=== PATIENT | female | born 1975 | race Caucasian/White ===

== ENCOUNTER 2017-12-04 08:12 | Emergency (ER) | payer MEDICAID, OTHER ==
[2017-12-04 08:17] VITALS: BP 105/70; PULSE 70; RESP 19; TEMP 98.7; O2SAT 96
--- NOTE | 2017-12-04 08:34 | ED PDOC ---
HPI: Asthma Time Seen by Provider: 12/04/17 08:16 Chief Complaint (Nursing): Cough, Cold, Congestion Chief Complaint (Provider): Asthma History Per: Patient History/Exam Limitations: no limitations Onset/Duration Of Symptoms: Days (today) Current Symptoms Are (Timing): Still Present Associated Symptoms: denies: Cough Additional Complaint(s): 42 year old female presents to the ED complaining of wheezing and itchy throat. She reports she ran out of medications prompting ED visit. Feels like her asthma. Worse when she walks a lot, like today without her meds. No chest pain. Patient denies nausea, vomiting, diarrhea, coughing, abdominal pain, congestion, leg pain, and long distance traveling. No hormone use. PMD: none Past Medical History Reviewed: Historical Data, Nursing Documentation, Vital Signs Vital Signs: Last Vital Signs Temp 98.7 F 12/04/17 08:16 Pulse 70 12/04/17 08:16 Resp 19 12/04/17 08:16 BP 105/70 12/04/17 08:16 Pulse Ox 96 12/04/17 08:16 - Medical History PMH: Asthma - Surgical History Surgical History: No Surg Hx - Family History Family History: States: Unknown Family Hx - Living Arrangements Living Arrangements: With Family - Home Medications Home Medications: Ambulatory Orders Medication Instructions Recorded Albuterol Sulfate [Proair Hfa] 0.09 mg IH Q6H PRN #2 inh 12/04/17 predniSONE [predniSONE Tab] 20 mg PO BID 5 Days tab 12/04/17 - Allergies Allergies/Adverse Reactions: Allergies Allergy/AdvReac Type Severity Reaction Status Date / Time cat dander Allergy WHEEZING Verified 12/04/17 08:31 Review of Systems Constitutional: Negative for: Fever, Chills, Weakness ENT: Positive for: Other (Itchy throat). Negative for: Nose Congestion, Throat Pain Cardiovascular: Negative for: Chest Pain Respiratory: Positive for: Wheezing. Negative for: Cough, SOB with Exertion Gastrointestinal: Negative for: Nausea, Vomiting, Abdominal Pain, Diarrhea Musculoskeletal: Negative for: Leg Pain Neurological: Negative for: Weakness Physical Exam - Reviewed Nursing Documentation Reviewed: Yes Vital Signs Reviewed: Yes - Physical Exam Appears: Positive for: Non-toxic, No Acute Distress Head Exam: Positive for: ATRAUMATIC, NORMOCEPHALIC Skin: Positive for: Normal Color, Warm, Dry Eye Exam: Positive for: Normal appearance ENT: Positive for: Nasal Congestion Neck: Positive for: Normal, Painless ROM, Supple Cardiovascular/Chest: Positive for: Regular Rate, Rhythm. Negative for: Murmur Respiratory: Positive for: Decreased Breath Sounds, Wheezing (Mild expiratory wheezing). Negative for: Accessory Muscle Use Back: Positive for: Normal Inspection. Negative for: L CVA Tenderness, R CVA Tenderness Extremity: Positive for: Normal ROM. Negative for: Tenderness, Pedal Edema Neurologic/Psych: Positive for: Alert, Oriented. Negative for: Motor/Sensory Deficits - ECG O2 Sat by Pulse Oximetry: 96 (RA) Pulse Ox Interpretation: Normal - Progress ED Course And Treament: 910: Stable. AAOx3. Tolerated PO. No respiratory distress. Comfortable. Wants rx for her albuterol. States she gets prednisone sometimes also. Medical Decision Making Medical Decision Making: Initial Impression: Wheezing Initial Plan: --ED urine --Albuterol 3mL INH --Prednisone 60mg PO Scribe Attestation: Documented by Tha Ramirez acting as a scribe for Timothy Cho MD. Provider Scribe Attestation: All medical record entries made by the Scribe were at my direction and personally dictated by me. I have reviewed the chart and agree that the record accurately reflects my personal performance of the history, physical exam, medical decision making, and the department course for this patient. I have also personally directed, reviewed, and agree with the discharge instructions and disposition. Disposition - Clinical Impression Clinical Impression: Asthma - Patient ED Disposition Is Patient to be Admitted: No Counseled Patient/Family Regarding: Studies Performed, Diagnosis, Need For Followup, Rx Given - Disposition Referrals: [facility] [Outside] - 12/05/17 Disposition: Routine/Home Disposition Time: 08:50 Condition: STABLE Additional Instructions: Return if not better in 3 days. Prescriptions: Albuterol Sulfate [Proair Hfa] 0.09 mg IH Q6H PRN #2 inh PRN Reason: Wheezing predniSONE [predniSONE Tab] 20 mg PO BID 5 Days tab Instructions: Asthma in Adults
[2017-12-04] MEDS ORDERED: Albuterol-Ipratrop 3 mg / 0.5 (3 ml) UD INH STA (08:38)
[2017-12-04] MEDS ORDERED: Albuterol-Ipratrop 3 mg / 0.5 (3 ml) UD ONE (08:53)
== END 2017-12-04 09:22 | disposition home or self-care (01) ==
LOC: H.ER 08:12
DX: J45.909 Unspecified asthma, uncomplicated (principal)

== ENCOUNTER 2017-12-28 15:48 | Emergency (ER) | payer MEDICAID, OTHER ==
[2017-12-28 15:52] VITALS: RESP 16
[2017-12-28] MEDS ORDERED: Albuterol-Ipratrop 3 mg / 0.5 (3 ml) UD INH STA (16:01)
[2017-12-28] MEDS ORDERED: Albuterol-Ipratrop 3 mg / 0.5 (3 ml) UD ONE ×2 (16:04→17:07)
--- NOTE | 2017-12-28 16:05 | ED PDOC ---
HPI: CCC, URI, Sore Throat Chief Complaint (Provider): Cough, Wheezing History Per: Patient History/Exam Limitations: no limitations Onset/Duration Of Symptoms: Days Current Symptoms Are (Timing): Still Present Location Of Pain: None Sick Contacts (Context): None Additional Complaint(s): 42 y/o female presents to the ED complaining of cough and wheezing, progressively worsening over the past several weeks. States she does have a past medical history of asthma. Due to insurance problems, patient has been unable to get her albuterol inhaler. Denies any fever, chills, chest pain, hemoptysis, sick contacts, or recent travel. PMD: Unknown <Man Silveira - Last Filed: 12/28/17 18:07> <Ruchi Gomes - Last Filed: 12/29/17 15:59> Time Seen by Provider: 12/28/17 15:55 Chief Complaint (Nursing): Cough, Cold, Congestion Supervising Attending Note - Attestation: I have personally seen and examined this patient.: No I have reviewed all pertinent clinical information, including history, physical exam and plan: Yes <Ruchi Gomes F - Last Filed: 12/29/17 15:59> Past Medical History Reviewed: Historical Data, Nursing Documentation, Vital Signs Vital Signs: Last Vital Signs Temp 97.9 F 12/28/17 15:49 Pulse 92 H 12/28/17 15:49 Resp 16 12/28/17 15:49 BP 117/73 12/28/17 15:49 Pulse Ox 100 12/28/17 15:49 - Medical History PMH: Asthma - Family History Family History: States: Unknown Family Hx - Social History Current smoker - smoking cessation education provided: Yes <Man Silveira - Last Filed: 12/28/17 18:07> Vital Signs: Last Vital Signs Temp 98.9 F 12/28/17 18:15 Pulse 87 12/28/17 18:15 Resp 16 12/28/17 15:49 BP 98/63 L 12/28/17 18:15 Pulse Ox 95 12/28/17 18:15 <Ruchi Gomes - Last Filed: 12/29/17 15:59> - Home Medications Home Medications: Ambulatory Orders Medication Instructions Recorded Albuterol Sulfate [Proair Hfa] 0.09 mg IH Q6H PRN #2 inh 12/04/17 RX: predniSONE [predniSONE Tab] 20 mg PO BID 5 Days tab 12/04/17 Albuterol HFA [Ventolin HFA 90 2 puff IH [id number] PRN #60 puff 12/28/17 mcg/actuation (8 g)] predniSONE [Prednisone] 40 mg PO DAILY #8 tab 12/28/17 - Allergies Allergies/Adverse Reactions: Allergies Allergy/AdvReac Type Severity Reaction Status Date / Time cat dander Allergy WHEEZING Verified 12/04/17 08:31 Review of Systems ROS Statement: Except As Marked, All Systems Reviewed And Found Negative Constitutional: Negative for: Fever, Chills Cardiovascular: Negative for: Chest Pain, Palpitations Respiratory: Positive for: Cough, Wheezing. Negative for: Hemoptysis <Man Silveira - Last Filed: 12/28/17 18:07> Physical Exam - Reviewed Nursing Documentation Reviewed: Yes Vital Signs Reviewed: Yes - Physical Exam Appears: Positive for: Well, Non-toxic, No Acute Distress Head Exam: Positive for: ATRAUMATIC, NORMOCEPHALIC Skin: Positive for: Normal Color, Warm, Dry Eye Exam: Positive for: Normal appearance ENT: Positive for: Normal ENT Inspection, Pharynx Is (clear) Neck: Positive for: Normal, Painless ROM, Supple Cardiovascular/Chest: Positive for: Regular Rate, Rhythm. Negative for: Tachycardia Respiratory: Positive for: Wheezing (expiratory wheezing bilaterally). Negative for: Accessory Muscle Use, Respiratory Distress Pulses-Radial (L): 2+ Pulses-Radial (R): 2+ Extremity: Positive for: Normal ROM. Negative for: Pedal Edema, Calf Tenderness Neurologic/Psych: Positive for: Alert, Oriented (x3), Other (Speaking in full sentences). Negative for: Motor/Sensory Deficits <Man Silveira E - Last Filed: 12/28/17 18:07> - ECG O2 Sat by Pulse Oximetry: 100 (RA) Pulse Ox Interpretation: Normal <Man Silveira - Last Filed: 12/28/17 18:07> Medical Decision Making Medical Decision Making: Impression: Asthma exacerbation Initial Plan: --Urine preg --Chest x-ray --Prednisone 40 mg PO --Duoneb 3ml x3 --Peak Flow pre/post nebulizers --Reassessment after treatment Repeat Peak Flow: 220 On reeval, patient states she is feeling better, wheezing still present. Lungs with improved wheezing on auscultation. Additional albuterol nebulizer ordered. Scribe Attestation: Documented by Justine Ramos, acting as a scribe for Man Silveira PA-C. Provider Scribe Attestation: All medical record entries made by the Scribe were at my direction and personally dictated by me. I have reviewed the chart and agree that the record accurately reflects my personal performance of the history, physical exam, medical decision making, and the department course for this patient. I have also personally directed, reviewed, and agree with the discharge instructions and disposition. <Man Silveira - Last Filed: 12/28/17 18:07> Disposition - Patient ED Disposition Is Patient to be Admitted: No - Disposition Disposition: Routine/Home Disposition Time: 18:07 <Man Silveira - Last Filed: 12/28/17 18:07> <Ruchi Gomes - Last Filed: 12/29/17 15:59> - Clinical Impression Clinical Impression: Bronchospasm, acute - Disposition Referrals: [facility] [Outside] Condition: IMPROVED Additional Instructions: SANDY CHAVES, thank you for letting us take care of you today. Your provider was Ruchi Gomes MD and you were treated for DIFFICULTY BREATHING. The emergency medical care you received today was directed at your acute symptoms. If you were prescribed any medication, please fill it and take as directed. It may take several days for your symptoms to resolve. Return to the Emergency Department if your symptoms worsen, do not improve, or if you have any other problems. Please contact your doctor or call one of the physicians/clinics you have been referred to that are listed on the Patient Visit Information form that is included in your discharge packet. Bring any paperwork you were given at discharge with you along with any medications you are taking to your follow up visit. Our treatment cannot replace ongoing medical care by a primary care provider outside of the emergency department. Thank you for allowing the [facility] team to be part of your care today. If you had an X-Ray or CT scan: A Radiologist will review the ED reading if any change in treatment is needed we will contact you. If you had a blood, urine, or wound culture: It will take several days for the results, if any change in treatment is needed we will contact you. If you had an STI test: It will take 48 hours for the results. Please call after 1 week if you have not heard back. Prescriptions: Albuterol HFA [Ventolin HFA 90 mcg/actuation (8 g)] 2 puff IH [id number] PRN #60 puff PRN Reason: Cough predniSONE [Prednisone] 40 mg PO DAILY #8 tab Instructions: Asthma, Adult (DC) Forms: [employer] ([place]) - PA / SHANK SCOURER / Resident Statement MD/DO has reviewed & agrees with the documentation as recorded. <Man Silveira E - Last Filed: 12/28/17 18:07>
--- NOTE | 2017-12-28 16:49 | RAD ---
Date of service: 12/28/2017 HISTORY: cough COMPARISON: No prior. TECHNIQUE: Chest PA and lateral FINDINGS: LUNGS: No active pulmonary disease. PLEURA: No significant pleural effusion identified. No pneumothorax apparent. CARDIOVASCULAR: Normal. OSSEOUS STRUCTURES: Partially imaged thoracolumbar spinal fusion rods. VISUALIZED UPPER ABDOMEN: Normal. OTHER FINDINGS: None. IMPRESSION: No active disease.
[2017-12-28] MEDS ORDERED: Albuterol 0.083% Inhal Sol (2.5 mg/3 mL) UD INH STA (17:02)
[2017-12-28] MEDS ORDERED: Albuterol 0.083% Inhal Sol (2.5 mg/3 mL) UD ONE (17:14)
[2017-12-28 21:54] VITALS: BP 98/63; PULSE 87; TEMP 98.9; O2SAT 95
== END 2017-12-28 18:20 | disposition home or self-care (01) ==
LOC: H.ER 15:48
DX: J45.901 Unspecified asthma with (acute) exacerbation (principal); F17.200 Nicotine dependence, unspecified, uncomplicated

== ENCOUNTER 2018-01-03 09:57 | Inpatient (IN) | payer MEDICAID, OTHER ==
[2018-01-03 10:04] VITALS: BMI 20.3
[2018-01-03] MEDS ORDERED: Albuterol-Ipratrop 3 mg / 0.5 (3 ml) UD IH STA (10:51)
[2018-01-03] MEDS ORDERED: Albuterol-Ipratrop 3 mg / 0.5 (3 ml) UD INH STA (10:51)
--- NOTE | 2018-01-03 10:51 | ED PDOC ---
HPI: Chest Pain Time Seen by Provider: 01/03/18 10:18 Chief Complaint (Nursing): Chest Pain Chief Complaint (Provider): Pain to the R rib History Per: Patient History/Exam Limitations: no limitations Onset/Duration Of Symptoms: Days (1 week) Additional Complaint(s): Pt. with right upper back and r lateral rib pain on moving and coughing. Pain when moving shoulders or putting clothes on. Denies any injury. Has had cough, wheezes for 1 week and got the pain since yesterday. Here recently and given albuterol and prednisone which she says she finished. No left chest pain. No headaches, dizziness, weakness, fever, abd pain, nausea, vomit, diarrhea. No shoulder or leg pain. No numbness, tingles. Past Medical History Reviewed: Nursing Documentation, Vital Signs Vital Signs: Last Vital Signs Temp 99 F 01/03/18 10:16 Pulse 109 H 01/03/18 10:16 Resp 20 01/03/18 10:16 BP 102/66 01/03/18 10:16 Pulse Ox 98 01/03/18 10:16 - Medical History PMH: Anxiety, Asthma, Depression - Surgical History Surgical History: Back Surgery - Family History Family History: States: Unknown Family Hx - Home Medications Home Medications: Ambulatory Orders Medication Instructions Recorded Albuterol Sulfate [Proair Hfa] 0.09 mg IH Q6H PRN #2 inh 12/04/17 predniSONE [predniSONE Tab] 20 mg PO BID 5 Days tab 12/04/17 Albuterol HFA [Ventolin HFA 90 2 puff IH [id number] PRN #60 puff 12/28/17 mcg/actuation (8 g)] predniSONE [Prednisone] 40 mg PO DAILY #8 tab 12/28/17 - Allergies Allergies/Adverse Reactions: Allergies Allergy/AdvReac Type Severity Reaction Status Date / Time cat dander Allergy WHEEZING Verified 01/03/18 10:20 Review of Systems ROS Statement: Except As Marked, All Systems Reviewed And Found Negative Cardiovascular: Positive for: Chest Pain Respiratory: Positive for: Cough, Shortness of Breath, Wheezing Physical Exam - Reviewed Nursing Documentation Reviewed: Yes Vital Signs Reviewed: Yes - Physical Exam Appears: Positive for: Uncomfortable Head Exam: Positive for: ATRAUMATIC, NORMAL INSPECTION, NORMOCEPHALIC Skin: Positive for: Normal Color, Warm, DRY Eye Exam: Positive for: EOMI, Normal appearance, PERRL ENT: Positive for: Nasal Congestion Neck: Positive for: Normal, Painless ROM, Supple Cardiovascular/Chest: Positive for: Regular Rate, Rhythm. Negative for: Chest Non Tender (R lateral upper rib and R upper back end developer mild.) Respiratory: Positive for: Decreased Breath Sounds, Wheezing (mild b/l) Gastrointestinal/Abdominal: Positive for: Normal Exam, Soft. Negative for: Tenderness Back: Positive for: Normal Inspection. Negative for: L CVA Tenderness, R CVA Tenderness Extremity: Positive for: Normal ROM. Negative for: Tenderness, Pedal Edema Neurologic/Psych: Positive for: Alert, Oriented - Laboratory Results Result Diagrams: 01/03/18 13:00 01/03/18 13:00 Interpretation Of Abn Labs: 17.9 wbc, 3.3 k - ECG ECG: Positive for: Interpreted By Me, Viewed By Me ECG Rhythm: Positive for: Normal QRS, Normal ST Segment, Sinus Rhythm O2 Sat by Pulse Oximetry: 98 Pulse Ox Interpretation: Normal - Radiology X-Ray: Read By Radiologist X-Ray Interpretation: Infiltrates (R lung) - Progress ED Course And Treament: 1427: Stable. AAOx3. Will need admit. Failed outpt. tx. Meet sepsis criteria. 1436: Stable. Spoke with Dr. Alejandro. Will admit tele. - Critical Care Total Time (In Min): 30 Documented Critical Care: Time excludes all time spent performint seperately billable procedures Disposition - Clinical Impression Clinical Impression: Asthma attack, Pneumonia, Sepsis - Patient ED Disposition Is Patient to be Admitted: Yes Counseled Patient/Family Regarding: Studies Performed, Diagnosis - Disposition Disposition Time: 14:38 Condition: FAIR - Pt Status Changed To: Hospital Disposition Of: Inpatient - Admit Certification Admit to Inpatient:: After my assessment, the patient will require hospitalization for at least two midnights. This is because of the severity of symptoms shown, intensity of services needed, and/or the medical risk in this patient being treated as an outpatient. - POA Present On Arrival: None
--- NOTE | 2018-01-03 11:37 | RAD ---
Date of service: 01/03/2018 HISTORY: pain COMPARISON: 12/28/2017 TECHNIQUE: Chest PA and lateral FINDINGS: LUNGS: Interval space opacity right upper lobe possible smaller more patchy opacities right lung base. Infiltrates at these locations especially the right upper lobe noted PLEURA: No significant pleural effusion identified. No pneumothorax apparent. CARDIOVASCULAR: Normal. OSSEOUS STRUCTURES: Thoraco lumbar spinal hardware as before. VISUALIZED UPPER ABDOMEN: Normal. OTHER FINDINGS: None. IMPRESSION: Interval right sided pulmonary infiltrates as above. Comments: Study marked for PA review .
[2018-01-03] MEDS ORDERED: Sodium Chloride 0.9% 1,000 ML IV STA (11:47)
[2018-01-03] MEDS ORDERED: cefTRIAXone (Rocephin) 1 gm Inj IV ONE (11:47)
[2018-01-03] MEDS ORDERED: Azithromycin 500 MG in Sodium Chloride 0.9% 250 ML IVPB STA (12:00)
[2018-01-03 12:16] LABS: ABG ALLEN TEST YES; ARTERIAL BLOOD GAS HCO3 27.2 mmol/L (21-28); ARTERIAL BLOOD GAS O2 SAT 99.5 % (95-98); ARTERIAL BLOOD GAS PCO2 30 mm/Hg (35-45); ARTERIAL BLOOD GAS PH 7.53 (7.35-7.45); ARTERIAL BLOOD GAS PO2 80 mm/Hg (80-100)
[2018-01-03] MEDS ORDERED: Albuterol-Ipratrop 3 mg / 0.5 (3 ml) UD ONE (13:19)
[2018-01-03] MEDS ORDERED: cefTRIAXone (Rocephin) 1 gm Inj ONE (13:19)
[2018-01-03] MEDS ORDERED: Azithromycin 500 MG IV IVPB ONE (13:20)
[2018-01-03 13:29] LABS: BASO % 0.2 % (0.0-2.0); EOS % 0.2 % (0.0-4.0); HEMOGLOBIN 11.5 g/dL (12.0-16.0); LYMPH # 2.1 K/uL (1.0-4.3); MEAN CELL VOLUME 93.4 fl (81.0-99.0); MEAN CORPUSCULAR HEMOGLOBIN 31.9 pg (27.0-31.0); MEAN CORPUSCULAR HGB CONC 34.2 g/dL (33.0-37.0); MEAN PLATELET VOLUME 7.2 fl (7.2-11.7); MONO # 1.2 K/uL (0.0-0.8); MONO % 6.9 % (0.0-10.0); NEUT # 14.4 K/uL (1.8-7.0); NEUT % 80.7 % (50.0-75.0); RBC 3.61 Mil/uL (3.80-5.20); RED CELL DISTRIBUTION WIDTH 12.7 % (11.5-14.5); WHITE BLOOD COUNT 17.9 K/uL (4.8-10.8)
[2018-01-03 13:40] LABS: ALB/GLOB RATIO 1.1 (1.0-2.1); ALBUMIN 3.8 g/dL (3.5-5.0); ALT/SGPT 32 U/L (9-52); AST/SGOT 18 U/L (14-36); BLOOD UREA NITROGEN 9 mg/dl (7-17); GFR NON-AFRICAN AMERICAN > 60
[2018-01-03 13:50] LABS: B-TYPE NATRIURETIC PEPTIDE 87.8 pg/ml (0-450)
[2018-01-03] MEDS ORDERED: Potassium Chloride 20 mEq ER Tab PO ONE ×3 (14:27→18:33)
[2018-01-03] MEDS ORDERED: Morphine 4 MG/ML VIAL ONE (15:35)
--- NOTE | 2018-01-03 16:30 | CARD ---
APPROVED REPORT Date of service: 01/03/2018 EKG Measurement Heart [id number] <Conclusion> Normal sinus rhythm Normal ECG
[2018-01-03] MEDS ORDERED: Albuterol-Ipratrop 3 mg / 0.5 (3 ml) UD INH PRN (17:23)
--- NOTE | 2018-01-03 17:32 | CP.PCM.HP ---
History of Present Illness - History of Present Illness History of Present Illness: 42 yo female with pmhx of asthma presents to [facility] ED with complaints of right sided pleuritic chest pain and chills for 2 days associated with productive cough and intermittent wheezing x 2 weeks. Patient reports her right upper back and right lateral ribs hurts with deep breathing. Patient was seen by her PMD few days ago and was given albuterol and prednisone for 4 days. She completed prednisone yesterday with no significant improvement of symptoms. Has hx pneumonia 9 years ago. Patient smokes 4-5 cigarettes daily for 40 yrs. Denies any hx intubation due to asthma. Denies any fever, left sided chest pain, headache, dizziness, GI or complaints. ROS: all 12 systems reviewed and negative except as mentioned in HPI PMHX: Asthma, anxiety and depression PSHX: back surgery Social hx: smokes on/off for 40 yrs, currently smokes 3-4 cigarettes daily. Denies drinking alcohol or using drugs. Family hx: mother has asthma Allergies: Cat dander Medications: albuterol HFA, nebulizer at home. Present on Admission - Present on Admission Any Indicators Present on Admission: No Review of Systems - Review of Systems All systems: reviewed and no additional remarkable complaints except Past Patient History - Infectious Disease Hx of Infectious Diseases: None - Past Social History Smoking Status: Unknown If Ever Smoked - PULMONARY Hx Asthma: Yes - HEENT Hx Deafness: Yes - PSYCHIATRIC Hx Anxiety: Yes Hx Depression: Yes - ANESTHESIA Hx Anesthesia: Yes Meds Allergies/Adverse Reactions: Allergies Allergy/AdvReac Type Severity Reaction Status Date / Time cat dander Allergy WHEEZING Verified 01/03/18 10:20 Physical Exam - Constitutional Appears: Non-toxic, No Acute Distress - Head Exam Head Exam: ATRAUMATIC, NORMOCEPHALIC - Eye Exam Eye Exam: EOMI, Normal appearance, PERRL - ENT Exam ENT Exam: Mucous Membranes Moist - Neck Exam Neck exam: Positive for: Full Rom, Normal Inspection. Negative for: Meningismus - Respiratory Exam Respiratory Exam: Decreased Breath Sounds, Rales (in right lung), NORMAL BREATHING PATTERN. absent: Accessory Muscle Use, Wheezes, Respiratory Distress - Cardiovascular Exam Cardiovascular Exam: REGULAR RHYTHM, +S1, +S2 - GI/Abdominal Exam GI & Abdominal Exam: Normal Bowel Sounds, Soft. absent: Tenderness - Extremities Exam Extremities exam: Positive for: normal inspection. Negative for: calf tenderness, pedal edema - Neurological Exam Neurological exam: Alert, CN II-XII Intact, Oriented x3 - Psychiatric Exam Psychiatric exam: Normal Affect, Normal Mood - Skin Skin Exam: Normal Color, Warm Results - Vital Signs Recent Vital Signs: Last Vital Signs Temp 99 F 01/03/18 10:16 Pulse 109 H 01/03/18 10:16 Resp 20 01/03/18 10:16 BP 102/66 01/03/18 10:16 Pulse Ox 98 01/03/18 14:39 - Labs Result Diagrams: 01/03/18 13:00 01/03/18 13:00 Labs: Laboratory Results - last 24 hr 01/03/18 01/03/18 01/03/18 11:47 13:00 13:00 WBC 17.9 H RBC 3.61 L Hgb 11.5 L Hct 33.7 L MCV 93.4 MCH 31.9 H MCHC 34.2 RDW 12.7 Plt Count 280 MPV 7.2 Neut % (Auto) 80.7 H Lymph % (Auto) 12.0 L [place] % (Auto) 6.9 Eos % (Auto) 0.2 Baso % (Auto) 0.2 Neut # (Auto) 14.4 H Lymph # (Auto) 2.1 [place] # (Auto) 1.2 H Eos # (Auto) 0.0 Baso # (Auto) 0.0 pCO2 30 L pO2 80 HCO3 27.2 ABG pH 7.53 H ABG Total CO2 26.0 ABG O2 Saturation 99.5 H ABG Base Excess 3.0 Walter Test Yes ABG Potassium 3.2 L A-a O2 Difference 32.0 Sodium 135.0 139 Chloride 104.0 104 Glucose 113 H Lactate 1.2 FiO2 21.0 Potassium 3.3 L Carbon Dioxide 24 Anion Gap 14 BUN 9 Creatinine 0.5 L Est GFR ( Amer) > 60 Est GFR (Non-Af Amer) > 60 Random Glucose 105 Calcium 9.0 Total Bilirubin 0.4 AST 18 ALT 32 Alkaline Phosphatase 62 Troponin I < 0.0120 NT-Pro-B Natriuret Pep 87.8 Total Protein 7.2 Albumin 3.8 Globulin 3.4 Albumin/Globulin Ratio 1.1 Arterial Blood Potassium 3.2 L Influenza Typ A,B (EIA) 01/03/18 13:00 WBC RBC Hgb Hct MCV MCH MCHC RDW Plt Count MPV Neut % (Auto) Lymph % (Auto) [place] % (Auto) Eos % (Auto) Baso % (Auto) Neut # (Auto) Lymph # (Auto) [place] # (Auto) Eos # (Auto) Baso # (Auto) pCO2 pO2 HCO3 ABG pH ABG Total CO2 ABG O2 Saturation ABG Base Excess Walter Test ABG Potassium A-a O2 Difference Sodium Chloride Glucose Lactate FiO2 Potassium Carbon Dioxide Anion Gap BUN Creatinine Est GFR ( Amer) Est GFR (Non-Af Amer) Random Glucose Calcium Total Bilirubin AST ALT Alkaline Phosphatase Troponin I NT-Pro-B Natriuret Pep Total Protein Albumin Globulin Albumin/Globulin Ratio Arterial Blood Potassium Influenza Typ A,B (EIA) Negative for flu a/b Assessment & Plan - Assessment and Plan (Free Text) Assessment: Assessment: 42 yo female with pmhx of asthma presents to [facility] ED with complaints of right sided pleuritic chest pain and chills for 2 days associated with productive cough and intermittent wheezing x 2 weeks. Patient is admitted for pneumonia and asthma exacerbation. Plan: Admit to telemetry IV abx (Cefriaxone and azithromycin) IV solumedrol Duoneb Pain management AM Labs Patient seen and examined with Dr. Flavia Sotomayor, pgy-2
[2018-01-03] MEDS ORDERED: Pantoprazole 40 mg EC Tab PO ONE (18:20)
[2018-01-03] MEDS: Pantoprazole 40 mg EC Tab PO SCH (18:22)
[2018-01-03] MEDS ORDERED: methylPREDNISolone 40 MG in Sodium Chloride 0.9% 50 ML IVPB SCH (21:00)
[2018-01-03] MEDS: guaiFENesin-Codeine 100-10mg/5ml Syrup (5 ml) UD PO PRN (21:49)
[2018-01-03] MEDS: MethylPREDNISolone 40 mg Vial IVP SCH (22:01)
[2018-01-03] MEDS: Sodium Chloride 0.9% 1,000 ML IV SCH (22:18)
[2018-01-04] MEDS: Sodium Chloride 0.9% 1,000 ML IV SCH ×4 (04:42→22:01)
[2018-01-04] MEDS: guaiFENesin-Codeine 100-10mg/5ml Syrup (5 ml) UD PO PRN (04:49)
[2018-01-04] MEDS ORDERED: Pneumococcal 23-Valent Vaccine IM ONE (04:51)
[2018-01-04 06:24] LABS: HEMOGLOBIN 10.4 g/dL (12.0-16.0); MEAN CELL VOLUME 94.2 fl (81.0-99.0); MEAN CORPUSCULAR HEMOGLOBIN 31.8 pg (27.0-31.0); MEAN CORPUSCULAR HGB CONC 33.7 g/dL (33.0-37.0); RBC 3.26 Mil/uL (3.80-5.20); RED CELL DISTRIBUTION WIDTH 12.5 % (11.5-14.5); WHITE BLOOD COUNT 15.4 K/uL (4.8-10.8)
[2018-01-04 06:59] LABS: BLOOD UREA NITROGEN 11 mg/dl (7-17); CALCIUM 8.6 mg/dL (8.4-10.2); GFR NON-AFRICAN AMERICAN > 60
[2018-01-04] MEDS ORDERED: Influenza Vaccine 60 MCG/0.5 ML SYR (3 yr & up) IM ONE (07:55)
[2018-01-04] MEDS: Azithromycin 500 MG in Sodium Chloride 0.9% 250 ML IVPB SCH (08:35)
[2018-01-04] MEDS: MethylPREDNISolone 40 mg Vial IVP SCH ×2 (08:36→21:58)
[2018-01-04] MEDS: guaiFENesin-DM 600-30 mg ER Tab PO SCH ×2 (10:05→16:04)
[2018-01-04] MEDS: Pantoprazole 40 mg EC Tab PO SCH (10:06)
[2018-01-04] MEDS: Enoxaparin 30 mg Syringe SC SCH (10:06)
[2018-01-04] MEDS: Albuterol-Ipratrop 3 mg / 0.5 (3 ml) UD INH SCH ×3 (10:13→19:23)
--- NOTE | 2018-01-04 11:55 | CP.PCM.PN ---
Subjective - Date & Time of Evaluation Date of Evaluation: 01/04/18 Time of Evaluation: 11:55 - Subjective Subjective: Patient seen and examined today. Report right sided pleuritic pain and cough are improving. No acute overnight event. Afebrile but still hypotensive. Reports left breast pain for few days. Denies any discharge or trauma. Objective - Vital Signs/Intake and Output Vital Signs (last 24 hours): Temp Pulse Resp BP Pulse Ox 97.8 F 78 20 92/60 L 98 01/04/18 08:47 01/04/18 11:14 01/04/18 08:47 01/04/18 08:47 01/04/18 08:47 - Medications Medications: Current Medications Albuterol/Ipratropium (Duoneb 3 Mg/0.5 Mg (3 Ml) Ud) 3 ml INH RQ6 AJAY Last Admin: 01/04/18 10:13 Dose: 3 ml Enoxaparin Sodium (Lovenox) 30 mg SC DAILY AJAY; Protocol Last Admin: 01/04/18 10:06 Dose: 30 mg Guaifenesin/Codeine Phosphate (Robitussin W/Codeine) 10 ml PO Q6 PRN PRN Reason: Cough Last Admin: 01/04/18 04:49 Dose: 10 ml Guaifenesin/Dextromethorphan (Mucinex-Dm 600-30 Mg) 1 tab PO BID AJAY Last Admin: 01/04/18 10:05 Dose: 1 tab Sodium Chloride (Sodium Chloride 0.9%) 1,000 mls @ 125 mls/hr IV .Q8H AJAY Last Admin: 01/04/18 11:01 Dose: 125 mls/hr Azithromycin 500 mg/ Sodium (Chloride) 250 mls @ 250 mls/hr IVPB DAILY AJAY; Protocol Last Admin: 01/04/18 08:35 Dose: 250 mls/hr Ceftriaxone Sodium 1 gm/ (Sodium Chloride) 100 mls @ 100 mls/hr IVPB DAILY AJAY; Protocol Last Admin: 01/04/18 08:35 Dose: 100 mls/hr Ibuprofen (Motrin Tab) 600 mg PO Q6 PRN PRN Reason: Pain, moderate (4-7) Last Admin: 01/04/18 04:47 Dose: 600 mg Ketorolac Tromethamine (Toradol) 30 mg IVP Q6 PRN PRN Reason: Pain, severe (8-10) Methylprednisolone (Solu-Medrol) 40 mg IVP Q12 [facility] Last Admin: 01/04/18 08:36 Dose: 40 mg Pantoprazole Sodium (Protonix Ec Tab) 40 mg PO DAILY [facility] Last Admin: 01/04/18 10:06 Dose: 40 mg - Labs Labs: 01/04/18 06:00 01/04/18 06:00 - Constitutional Appears: Non-toxic, No Acute Distress - Head Exam Head Exam: NORMAL INSPECTION - Eye Exam Eye Exam: Normal appearance - ENT Exam ENT Exam: Mucous Membranes Moist - Neck Exam Neck Exam: Full ROM. absent: Meningismus - Respiratory Exam Respiratory Exam: Rales (in right lung), NORMAL BREATHING PATTERN. absent: Accessory Muscle Use, Rhonchi, Wheezes, Respiratory Distress - Cardiovascular Exam Cardiovascular Exam: REGULAR RHYTHM, +S1, +S2 - GI/Abdominal Exam GI & Abdominal Exam: Soft, Normal Bowel Sounds. absent: Tenderness - Neurological Exam Neurological Exam: Alert, Awake, Oriented x3 - Psychiatric Exam Psychiatric exam: Normal Affect, Normal Mood - Skin Skin Exam: Normal Color, Warm Assessment and Plan - Assessment and Plan (Free Text) Assessment: Assessment: 42 yo female with pmhx of asthma presents to [facility] ED with complaints of right sided pleuritic chest pain and chills for 2 days associated with productive cough and intermittent wheezing x 2 weeks. Patient is admitted for pneumonia and asthma exacerbation. Plan: NS 500 cc bolus Continue with IV abx (Cefriaxone and azithromycin) Continue with IV solumedrol 40 mg IVP q12 Duoneb Pain management US of left breast AM Labs Plan d/w Dr. Flavia Sotomayor, pgy-2
[2018-01-04] MEDS ORDERED: Sodium Chloride 0.9% 500 ML IV SCH (14:15)
[2018-01-05] MEDS: Albuterol-Ipratrop 3 mg / 0.5 (3 ml) UD INH SCH ×3 (01:00→13:22)
[2018-01-05] MEDS: Sodium Chloride 0.9% 1,000 ML IV SCH ×2 (02:38→05:20)
[2018-01-05 08:42] VITALS: RESP 18
--- NOTE | 2018-01-05 08:49 | CP.PCM.PN ---
Subjective - Date & Time of Evaluation Date of Evaluation: 01/05/18 Time of Evaluation: 09:10 - Subjective Subjective: Patient seen and examined this morning. Reports increased cough last night. No acute overnight event. Afebrile with stable vitals.No other complaints. Objective - Vital Signs/Intake and Output Vital Signs (last 24 hours): Temp Pulse Resp BP Pulse Ox 98.1 F 62 18 110/73 97 01/05/18 08:41 01/05/18 08:41 01/05/18 08:41 01/05/18 08:41 01/05/18 08:41 - Medications Medications: Current Medications Albuterol/Ipratropium (Duoneb 3 Mg/0.5 Mg (3 Ml) Ud) 3 ml INH RQ6 AJAY Last Admin: 01/05/18 01:00 Dose: Not Given Enoxaparin Sodium (Lovenox) 30 mg SC DAILY AJAY; Protocol Last Admin: 01/04/18 10:06 Dose: 30 mg Guaifenesin/Codeine Phosphate (Robitussin W/Codeine) 10 ml PO Q6 PRN PRN Reason: Cough Last Admin: 01/04/18 04:49 Dose: 10 ml Guaifenesin/Dextromethorphan (Mucinex-Dm 600-30 Mg) 1 tab PO BID AJAY Last Admin: 01/04/18 16:04 Dose: 1 tab Sodium Chloride (Sodium Chloride 0.9%) 1,000 mls @ 125 mls/hr IV .Q8H AJAY Last Admin: 01/05/18 05:20 Dose: 125 mls/hr Azithromycin 500 mg/ Sodium (Chloride) 250 mls @ 250 mls/hr IVPB DAILY AJAY; Protocol Last Admin: 01/04/18 08:35 Dose: 250 mls/hr Ceftriaxone Sodium 1 gm/ (Sodium Chloride) 100 mls @ 100 mls/hr IVPB DAILY AJAY; Protocol Last Admin: 01/04/18 08:35 Dose: 100 mls/hr Sodium Chloride (Sodium Chloride 0.9%) 500 mls @ 500 mls/hr IV .Q1H AJAY Stop: 01/05/18 14:12 Last Admin: 01/04/18 15:02 Dose: 500 mls/hr Ibuprofen (Motrin Tab) 600 mg PO Q6 PRN PRN Reason: Pain, moderate (4-7) Last Admin: 01/04/18 12:28 Dose: 600 mg Ketorolac Tromethamine (Toradol) 30 mg IVP Q6 PRN PRN Reason: Pain, severe (8-10) Last Admin: 01/05/18 02:48 Dose: 30 mg Methylprednisolone (Solu-Medrol) 40 mg IVP Q12 [facility] Last Admin: 01/04/18 21:58 Dose: 40 mg Pantoprazole Sodium (Protonix Ec Tab) 40 mg PO DAILY [facility] Last Admin: 01/04/18 10:06 Dose: 40 mg - Labs Labs: 01/04/18 06:00 01/04/18 06:00
[2018-01-05] MEDS: Enoxaparin 30 mg Syringe SC SCH (08:55)
[2018-01-05] MEDS: guaiFENesin-DM 600-30 mg ER Tab PO SCH (08:56)
[2018-01-05] MEDS: Pantoprazole 40 mg EC Tab PO SCH (08:56)
[2018-01-05] MEDS: MethylPREDNISolone 40 mg Vial IVP SCH (08:59)
[2018-01-05 10:28] LABS: BASO % 0.1 % (0.0-2.0); HEMOGLOBIN 10.3 g/dL (12.0-16.0); LYMPH # 1.4 K/uL (1.0-4.3); LYMPH % 9.9 % (20.0-40.0); MEAN CELL VOLUME 95.4 fl (81.0-99.0); MEAN CORPUSCULAR HEMOGLOBIN 31.6 pg (27.0-31.0); MEAN CORPUSCULAR HGB CONC 33.1 g/dL (33.0-37.0); MEAN PLATELET VOLUME 7.3 fl (7.2-11.7); MONO # 0.7 K/uL (0.0-0.8); MONO % 4.9 % (0.0-10.0); NEUT # 12.3 K/uL (1.8-7.0); NEUT % 85.1 % (50.0-75.0); PLATELET COUNT 254 K/uL (130-400); RBC 3.27 Mil/uL (3.80-5.20); RED CELL DISTRIBUTION WIDTH 12.7 % (11.5-14.5); WHITE BLOOD COUNT 14.5 K/uL (4.8-10.8)
[2018-01-05 10:45] LABS: BLOOD UREA NITROGEN 12 mg/dl (7-17); CALCIUM 8.8 mg/dL (8.4-10.2); GFR NON-AFRICAN AMERICAN > 60
--- NOTE | 2018-01-05 12:10 | CP.PCM.DIS ---
Provider - Provider Date of Admission: 01/03/18 14:37 Attending physician: Rocco Alejandro MD Time Spent in preparation of Discharge (in minutes): 30 Diagnosis - Discharge Diagnosis (1) Asthma attack Status: Resolved (2) Pneumonia Status: Acute (3) Bronchospasm, acute Status: Resolved Hospital Course - Lab Results Lab Results: Micro Results 01/03/18 13:00 Blood-Venous Blood Culture - Preliminary NO GROWTH AFTER 24 HOURS 01/03/18 13:05 Blood-Venous Blood Culture - Preliminary NO GROWTH AFTER 24 HOURS Most Recent Lab Values WBC 14.5 K/uL (4.8-10.8) H 01/05/18 10:20 RBC 3.27 Mil/uL (3.80-5.20) L 01/05/18 10:20 Hgb 10.3 g/dL (12.0-16.0) L 01/05/18 10:20 Hct 31.2 % (34.0-47.0) L 01/05/18 10:20 MCV 95.4 fl (81.0-99.0) 01/05/18 10:20 MCH 31.6 pg (27.0-31.0) H 01/05/18 10:20 MCHC 33.1 g/dL (33.0-37.0) 01/05/18 10:20 RDW 12.7 % (11.5-14.5) 01/05/18 10:20 Plt Count 254 K/uL (130-400) 01/05/18 10:20 MPV 7.3 fl (7.2-11.7) 01/05/18 10:20 Neut % (Auto) 85.1 % (50.0-75.0) H 01/05/18 10:20 Lymph % (Auto) 9.9 % (20.0-40.0) L 01/05/18 10:20 [facility] % (Auto) 4.9 % (0.0-10.0) 01/05/18 10:20 Eos % (Auto) 0.0 % (0.0-4.0) 01/05/18 10:20 Baso % (Auto) 0.1 % (0.0-2.0) 01/05/18 10:20 Neut # (Auto) 12.3 K/uL (1.8-7.0) H 01/05/18 10:20 Lymph # (Auto) 1.4 K/uL (1.0-4.3) 01/05/18 10:20 [facility] # (Auto) 0.7 K/uL (0.0-0.8) 01/05/18 10:20 Eos # (Auto) 0.0 K/uL (0.0-0.7) 01/05/18 10:20 Baso # (Auto) 0.0 K/uL (0.0-0.2) 01/05/18 10:20 pCO2 30 mm/Hg (35-45) L 01/03/18 11:47 pO2 80 mm/Hg (80-100) 01/03/18 11:47 HCO3 27.2 mmol/L (21-28) 01/03/18 11:47 ABG pH 7.53 (7.35-7.45) H 01/03/18 11:47 ABG Total CO2 26.0 mmol/L (22-28) 01/03/18 11:47 ABG O2 Saturation 99.5 % (95-98) H 01/03/18 11:47 ABG Base Excess 3.0 mmol/L (-2.0-3.0) 01/03/18 11:47 Walter Test Yes 01/03/18 11:47 ABG Potassium 3.2 mmol/L (3.6-5.2) L 01/03/18 11:47 A-a O2 Difference 32.0 mm/Hg 01/03/18 11:47 Sodium 135.0 mmol/L (132-148) 01/03/18 11:47 Chloride 104.0 mmol/L (98-107) 01/03/18 11:47 Glucose 113 mg/dL (65-105) H 01/03/18 11:47 Lactate 1.2 mmol/L (0.7-2.1) 01/03/18 11:47 FiO2 21.0 % 01/03/18 11:47 Sodium 142 mmol/l (132-148) 01/05/18 10:20 Potassium 3.8 MMOL/L (3.6-5.0) 01/05/18 10:20 Chloride 113 mmol/L (98-107) H 01/05/18 10:20 Carbon Dioxide 23 mmol/L (22-30) 01/05/18 10:20 Anion Gap 10 (10-20) 01/05/18 10:20 BUN 12 mg/dl (7-17) 01/05/18 10:20 Creatinine 0.6 mg/dl (0.7-1.2) L 01/05/18 10:20 Est GFR ( Amer) > 60 01/05/18 10:20 Est GFR (Non-Af Amer) > 60 01/05/18 10:20 Random Glucose 156 mg/dL (65-105) H 01/05/18 10:20 Calcium 8.8 mg/dL (8.4-10.2) 01/05/18 10:20 Total Bilirubin 0.4 mg/dl (0.2-1.3) 01/03/18 13:00 AST 18 U/L (14-36) 01/03/18 13:00 ALT 32 U/L (9-52) 01/03/18 13:00 Alkaline Phosphatase 62 U/L (38-126) 01/03/18 13:00 Troponin I < 0.0120 ng/mL (0.00-0.120) 01/03/18 13:00 NT-Pro-B Natriuret Pep 87.8 pg/ml (0-450) 01/03/18 13:00 Total Protein 7.2 G/DL (6.3-8.2) 01/03/18 13:00 Albumin 3.8 g/dL (3.5-5.0) 01/03/18 13:00 Globulin 3.4 gm/dL (2.2-3.9) 01/03/18 13:00 Albumin/Globulin Ratio 1.1 (1.0-2.1) 01/03/18 13:00 Arterial Blood Potassium 3.2 mmol/L (3.6-5.2) L 01/03/18 11:47 Influenza Typ A,B (EIA) Negative for flu a/b (NEGATIVE) 01/03/18 13:00 - Hospital Course Hospital Course: 42 yo female with pmhx of asthma presents to [facility] ED with complaints of right sided pleuritic chest pain and chills for 2 days associated with productive cough and intermittent wheezing x 2 weeks. CXR in ED showed RUL PNA and pts had elevated WBC. Patient was admitted for pneumonia and suspected sepsis. Patient received Rocephin 1 gm IV Q24hrs and Azithromycin 500 mg IV Q24 hours while admitted. Patient also received solumedrol 40 mg IV Q12HR and duoneb prn. Patients blood cx remains negative. Patient reports her dyspnea and pleuritic chest pain resolved and cough is improved. Patient is hemodynamically stable to discharge home with close f/u with PMD in 3-4 days. Discharge Exam - Head Exam Head Exam: NORMAL INSPECTION - Eye Exam Eye Exam: Normal appearance - ENT Exam ENT Exam: Mucous Membranes Moist - Neck Exam Neck exam: Full Rom, Normal Inspection - Respiratory Exam Respiratory Exam: Clear to PA & Lateral, NORMAL BREATHING PATTERN. absent: Accessory Muscle Use, Wheezes, Respiratory Distress - Cardiovascular Exam Cardiovascular Exam: REGULAR RHYTHM, +S1, +S2 - GI/Abdominal Exam GI & Abdominal Exam: Normal Bowel Sounds, Soft. absent: Tenderness - Extremities Exam Extremities exam: normal inspection - Neurological Exam Neurological exam: Alert, Oriented x3 - Psychiatric Exam Psychiatric exam: Normal Affect, Normal Mood - Skin Skin Exam: Normal Color, Warm Discharge Plan - Discharge Medications Prescriptions: Albuterol 0.083% [Albuterol Sulfate 3 Ml] 3 ml IH Q6H PRN #1 packet PRN Reason: Wheezing Azithromycin [Z-Wicho] 250 mg PO DAILY #6 tab Brompheniramine/Pseudoephed/Dm [Bromfed Dm Cough 118 ml] 10 ml PO Q4 PRN #300 ml PRN Reason: Cough predniSONE [Prednisone] 10 mg PO DAILY #21 tab - Follow Up Plan Condition: FAIR Disposition: HOME/ ROUTINE Instructions: Asthma, Adult (DC), Pneumonia, Adult (DC) Additional Instructions: Please follow up with PMD in 3-4 days. follow up appt lala merino on 01/09/18 10:20am Referrals: Rocco Alejandro MD [Staff Provider] -
[2018-01-05 12:27] LABS: BANDS 2 % (0-2); METAMYELOCYTE 3 % (0-0); MONOCYTE 3 % (0-10); MYELOCYTE 1 % (0-0); NEUTROPHIL 79 % (42-75); TOTAL CELLS COUNTED 100
[2018-01-05 12:46] VITALS: BP 120/75; PULSE 66; TEMP 98.6; O2SAT 98
[2018-01-05 13:16] LABS: LYMPHOCYTE 12 % (20-50)
[2018-01-05 13:17] LABS: PLATELET ESTIMATE NORMAL (NORMAL)
[2018-01-05] MEDS: Azithromycin 500 MG in Sodium Chloride 0.9% 250 ML IVPB SCH (14:21)
--- NOTE | 2018-01-05 15:26 | PQF ---
PROVIDER RESPONSE TEXT: Patient has suspected bacterial pneumonia. REVIEWER QUERY TEXT: Pneumonia Specificity Pneumonia is documented in the Medical Record. Please specify the type of pneumonia and the causative organism (includes probable or suspected) Such as: Type: -- Aspiration pneumonia (please also specify the aspirate) -- Bacterial (please document suspected or probable organism) -- Bronchopneumonia (please document suspected or probable organism) -- Interstitial pneumonia -- Organizing pneumonia / BOOP -- Tuberculosis, pulmonary -- Viral -- Other, please specify The patient's Clinical Indicators include: Patient with c/o right sided pleuritic chest pain and chills for 2 days associated with productive co ugh and intermittent wheezing x 2 weeks who failed outpatient treatment is admitted for Pneumonia and Asthma Exacerbation. CXR: Interval right sided pulmonary infiltrates , WBC 17.9 L shift, Rx: Solumedrol, nebulizers, IVAB Query created by: Charlotte Rangel on 01/04/2018 6:47 AM Electronically signed by: Sultan Sotomayor 01/05/2018 3:23 PM
--- NOTE | 2018-01-05 15:26 | PQF ---
PROVIDER RESPONSE TEXT: Sepsis is ruled out after workup REVIEWER QUERY TEXT: Documentation Clarification Your help is requested in clarifying the following clinical documentation, if you can please further specify in the medical record and discharge summary. ER MD with an additional diagnosis of SEPSIS. Please clarify if SEPSIS is ruled in or ruled out after workup. The patient's Clinical Indicators include: TEMP: 99, 99, 98.5, 98.1, 98, 97.9, 97.7 HR: 109, 109, 76, 89, 81, 74, 66, 78 BP: 102/66, 102/66, 99/61, 94/65, 102/67, 97/62, 120/67, 101/66 R: 20, 20, 18 x 4, Patient with c/o right sided pleuritic chest pain and chills for 2 days associated with productive co ugh and intermittent wheezing x 2 weeks who failed outpatient treatment is admitted for Pneumonia and Asthma Exacerbation. CXR: Interval right sided pulmonary infiltrates , WBC 17.9 L shift, BLOOD CS Pending results. Rx: Solumedrol, nebulizers, IVAB Query created by: Charlotte Rangel on 01/04/2018 6:49 AM Electronically signed by: Sultan Sotomayor 01/05/2018 3:23 PM
--- NOTE | 2018-01-05 15:26 | PQF ---
PROVIDER RESPONSE TEXT: Patient hx suggests she has Mild intermittent Asthma REVIEWER QUERY TEXT: Asthma Specificity and Type Asthma is documented in the Medical Record. Please specify the type and severity of asthma and indic ate if this is associated with exacerbation or status asthmaticus. Such as: -- Mild intermittent -- Mild persistent -- Moderate persistent -- Severe persistent -- Exercise induced bronchospasm -- Cough variant asthma -- Other, please specify The patient's Clinical Indicators include: Patient with c/o right sided pleuritic chest pain and chills for 2 days associated with productive co ugh and intermittent wheezing x 2 weeks who failed outpatient treatment is admitted for Pneumonia and Asthma Exacerbation. CXR:Interval right sided pulmonary infiltrates , WBC 17.9 L shift, Rx: Solumedrol, nebulizers, IVAB Query created by: Charlotte Rangel on 01/04/2018 6:44 AM Electronically signed by: Sultan Sotomayor 01/05/2018 3:23 PM
== END 2018-01-05 16:25 | disposition home or self-care (01) | DRG 588 ==
LOC: H.ER 09:57 → H.ERHOLD 14:37 → H.TEL 20:59
PROVIDERS: ADMIT Family Medicine; ATTEND Family Medicine
PROC: 3E0234Z Introduction of Serum, Toxoid and Vaccine into Muscle, Percutaneous Approach (ICD-10-PCS; principal; 2018-01-04)
DX: J45.21 Mild intermittent asthma with (acute) exacerbation (principal); J15.9 Unspecified bacterial pneumonia; Z23 Encounter for immunization; F41.9 Anxiety disorder, unspecified; F32.9 Major depressive disorder, single episode, unspecified; H91.90 Unspecified hearing loss, unspecified ear; F17.210 Nicotine dependence, cigarettes, uncomplicated

== ENCOUNTER 2018-04-25 16:09 | Emergency (ER) | payer MEDICAID ==
[2018-04-25 16:09] VITALS: BMI 20.3
[2018-04-25 17:23] VITALS: BP 108/61; PULSE 76; RESP 16; TEMP 98; O2SAT 100
--- NOTE | 2018-04-25 18:03 | ED PDOC ---
HPI: Back Time Seen by Provider: 04/25/18 17:30 Chief Complaint (Nursing): Back Pain Chief Complaint (Provider): Back Pain History Per: Patient History/Exam Limitations: no limitations Onset/Duration Of Symptoms: Hrs Current Symptoms Are (Timing): Still Present Additional Complaint(s): Patient is a 42 y/o female with a PMHx of anxiety, asthma, and depression who presents to the ED for lower back pain ongoing for the past week that worsened today, thus, prompting the ED visit. Patient admits to a cough and reports her pain is exacerbated by deep breaths. The patient states she has a nebulizer but has not been using it. Patient denies any falls and urinary symptoms. Patient scales the severity of the pain as a 7/10. Of note, patient is hard of hearing. PCP: None Provided Past Medical History Reviewed: Historical Data, Nursing Documentation, Vital Signs Vital Signs: Last Vital Signs Temp 98.0 F 04/25/18 17:20 Pulse 76 04/25/18 17:20 Resp 16 04/25/18 17:20 BP 108/61 04/25/18 17:20 Pulse Ox 100 04/25/18 17:20 - Medical History PMH: Anxiety, Asthma, Depression Denies: Chronic Kidney Disease - Surgical History Surgical History: Back Surgery - Family History Family History: States: Unknown Family Hx - Home Medications Home Medications: Ambulatory Orders Medication Instructions Recorded Albuterol HFA [Ventolin HFA 90 2 puff IH [id number] PRN #60 puff 12/28/17 mcg/actuation (8 g)] Albuterol 0.083% [Albuterol 3 ml IH Q6H PRN #1 packet 01/05/18 Sulfate 3 Ml] Azithromycin [Z-Wicho] 250 mg PO DAILY #6 tab 01/05/18 Brompheniramine/Pseudoephed/Dm 10 ml PO Q4 PRN #300 ml 01/05/18 [Bromfed Dm Cough 118 ml] predniSONE [Prednisone] 10 mg PO DAILY #21 tab 01/05/18 Azithromycin [Zithromax] 250 mg PO DAILY #6 tab 04/25/18 Naproxen 375 mg PO Q8 PRN #21 tablet 04/25/18 diaZEpam [Valium] 5 mg PO Q8 PRN #4 tab 04/25/18 - Allergies Allergies/Adverse Reactions: Allergies Allergy/AdvReac Type Severity Reaction Status Date / Time cat dander Allergy WHEEZING Verified 01/03/18 10:20 Review of Systems ROS Statement: Except As Marked, All Systems Reviewed And Found Negative Respiratory: Positive for: Cough, Other (worse back pain with deep breaths) Genitourinary Female: Negative for: Dysuria, Hematuria Musculoskeletal: Positive for: Back Pain (lower) Physical Exam - Reviewed Nursing Documentation Reviewed: Yes Vital Signs Reviewed: Yes - Physical Exam Appears: Positive for: No Acute Distress Head Exam: Positive for: ATRAUMATIC, NORMAL INSPECTION, NORMOCEPHALIC Skin: Positive for: Normal Color, Warm, DRY Eye Exam: Positive for: EOMI, Normal appearance, PERRL Neck: Positive for: Normal, Painless ROM, Supple Cardiovascular/Chest: Positive for: Regular Rate, Rhythm. Negative for: Murmur Respiratory: Positive for: Normal Breath Sounds. Negative for: Respiratory Distress Gastrointestinal/Abdominal: Positive for: Normal Exam, Soft. Negative for: Tenderness Back: Positive for: Vertebral Tenderness (left, lower ribcage ) Extremity: Positive for: Normal ROM. Negative for: Pedal Edema, Deformity Neurologic/Psych: Positive for: Alert, Oriented. Negative for: Motor/Sensory Deficits - ECG O2 Sat by Pulse Oximetry: 100 (RA) Pulse Ox Interpretation: Normal Medical Decision Making Medical Decision Making: Time: 1752 Plan: Urine Urine Dipstick CXR (PA&Lat) Toradol 30 mg IM Time: 1806 FINDINGS: LUNGS: Resolution of right-sided infiltrates. No focal consolidation. PLEURA: No significant pleural effusion identified. No pneumothorax apparent. CARDIOVASCULAR: No aortic atherosclerotic calcification present. Normal cardiac size. No pulmonary vascular congestion. OSSEOUS STRUCTURES: Partially imaged thoracolumbar spinal fusion rods redemonstrated. Unchanged. VISUALIZED UPPER ABDOMEN: Normal. OTHER FINDINGS: None. IMPRESSION: No active disease. Scribe Attestation: Documented by Travis Odilia, acting as a scribe for GISELE Pierson. Provider Scribe Attestation: All medical record entries made by the Scribe were at my direction and personally dictated by me. I have reviewed the chart and agree that the record accurately reflects my personal performance of the history, physical exam, medical decision making, and the department course for this patient. I have also personally directed, reviewed, and agree with the discharge instructions and disposition. Disposition - Clinical Impression Clinical Impression: Muscle strain, Cough - Patient ED Disposition Is Patient to be Admitted: No Counseled Patient/Family Regarding: Studies Performed, Diagnosis, Need For Followup, Rx Given - Disposition Disposition: Routine/Home Disposition Time: 18:43 Condition: FAIR Prescriptions: Azithromycin [Zithromax] 250 mg PO DAILY #6 tab diaZEpam [Valium] 5 mg PO Q8 PRN #4 tab PRN Reason: Muscle Spasm Naproxen 375 mg PO Q8 PRN #21 tablet PRN Reason: Pain, Moderate (4-7) Instructions: Muscle Strain, Cough in Adults Forms: [facility] ED School/Work Excuse
--- NOTE | 2018-04-25 18:40 | RAD ---
Date of service: 04/25/2018 HISTORY: back pain COMPARISON: Chest radiograph dated 01/03/2018. TECHNIQUE: Chest PA and lateral FINDINGS: LUNGS: Resolution of right-sided infiltrates. No focal consolidation. PLEURA: No significant pleural effusion identified. No pneumothorax apparent. CARDIOVASCULAR: No aortic atherosclerotic calcification present. Normal cardiac size. No pulmonary vascular congestion. OSSEOUS STRUCTURES: Partially imaged thoracolumbar spinal fusion rods redemonstrated. Unchanged. VISUALIZED UPPER ABDOMEN: Normal. OTHER FINDINGS: None. IMPRESSION: No active disease.
== END 2018-04-25 19:08 | disposition home or self-care (01) ==
LOC: H.ER 16:09
DX: M54.5 Low back pain (principal); R05 Cough
CPT/HCPCS: 71046; 81025; 96372; 99282; J1885